=== PATIENT | male | born 1945 | race Caucasian/White ===

== ENCOUNTER 2022-03-22 13:13 | Inpatient (IN) ==
[2022-03-22] MEDS ORDERED: *HR* HYDROcodone/Acet 5/325 mg TABLET PO ONE (14:05)
[2022-03-22 15:33] LABS: Basophils % 0.3 %; Eosinophils % 0.2 %; Hematocrit 46.1 % (37.5-50.1); Hemoglobin 15.3 g/dL (12.9-16.9); Immature Granulocytes % 0.6 % (0-4); Lymphocytes % 8.1 %; Mean Corpuscular HGB Conc 33.2 g/dL (31.6-35.5); Mean Corpuscular Hemoglobin 30.2 pg (28.0-33.3); Mean Corpuscular Volume 90.9 fL (83.0-100.0); Mean Platelet Volume 10.1 fL (9.4-12.4); Monocytes # 0.9 K/mcL (0.0-1.3); Monocytes % 6.9 %; Neutrophils # 10.6 K/mcL (1.6-8.9); Platelet Count 266 K/mcL (140-400); Red Blood Count 5.07 M/mcL (4.19-5.50); Red Cell Distribution Width 13.9 % (11.5-14.5); Segmented Neutrophils % 83.9 %; White Blood Count 12.7 K/mcL (4.3-11.1)
[2022-03-22 15:40] LABS: INR 1.1; Prothrombin Time 12.8 Seconds (9.4-12.1)
[2022-03-22 15:42] LABS: Activated Partial Thrombo Time 28.7 Seconds (26.0-36.0)
[2022-03-22 16:06] LABS: Calcium 9.8 mg/dL (8.6-10.3); Potassium 4.6 mEq/L (3.5-5.1)
[2022-03-22] MEDS ORDERED: Ondansetron 4 MG/2 ML VIAL IVP PRN (17:03)
[2022-03-22] MEDS ORDERED: *HR* HYDROcodone/Acet 5/325 mg TABLET PO PRN (17:03)
[2022-03-22] MEDS ORDERED: Naloxone 0.4 MG/ML INJ IVP PRN (17:03)
[2022-03-22] MEDS ORDERED: Loratadine 10 MG TABLET PO PRN (17:12)
[2022-03-22] MEDS ORDERED: 0.9 % Sodium Chloride 1,000 ML IVC SCH (17:15)
[2022-03-22] MEDS: *HR* OxyCODONE Immed Rel 5 MG TABLET PO PRN (17:58)
[2022-03-22] MEDS: *HR* Heparin 5,000 UNIT/ML VIAL SQ SCH (17:59)
[2022-03-22] MEDS ORDERED: *HR* HYDROmorphone 2 MG/ML SYRINGE IVP ONE (19:00)
[2022-03-23 00:52] LABS: Basophils % 0.4 %; Eosinophils # 0.1 K/mcL (0.0-0.6); Eosinophils % 0.6 %; Hematocrit 43.3 % (37.5-50.1); Hemoglobin 14.2 g/dL (12.9-16.9); Immature Granulocytes % 0.5 % (0-4); Lymphocytes % 9.3 %; Mean Corpuscular HGB Conc 32.8 g/dL (31.6-35.5); Mean Corpuscular Hemoglobin 29.8 pg (28.0-33.3); Mean Corpuscular Volume 90.8 fL (83.0-100.0); Mean Platelet Volume 10.2 fL (9.4-12.4); Monocytes # 0.9 K/mcL (0.0-1.3); Monocytes % 8.3 %; Neutrophils # 8.4 K/mcL (1.6-8.9); Platelet Count 252 K/mcL (140-400); Red Blood Count 4.77 M/mcL (4.19-5.50); Red Cell Distribution Width 13.6 % (11.5-14.5); Segmented Neutrophils % 80.9 %; White Blood Count 10.4 K/mcL (4.3-11.1)
[2022-03-23 01:07] LABS: INR 1.2
[2022-03-23 01:08] LABS: BUN/Creatinine Ratio 17 (6-26); Blood Urea Nitrogen 22 mg/dL (8-23); Calcium 8.9 mg/dL (8.6-10.3); Carbon Dioxide 25 mEq/L (23-29); Chloride 103 mEq/L (98-107); Glucose 105 mg/dL (70-105); Magnesium 1.8 mg/dL (1.6-2.6); Osmolality,Calculated 284 (280-300); Phosphorous 3.3 mg/dL (2.7-4.5); Potassium 4.3 mEq/L (3.5-5.1); Sodium 135 mEq/L (136-145); eGFR For African Americans > 60 (> 60); eGFR For Non-African Americans 53 (> 60)
[2022-03-23 01:10] LABS: Activated Partial Thrombo Time 27.5 Seconds (26.0-36.0)
[2022-03-23] MEDS: *HR* Heparin 5,000 UNIT/ML VIAL SQ SCH (05:18)
[2022-03-23] MEDS: *HR* OxyCODONE Immed Rel 5 MG TABLET PO PRN ×3 (05:37→23:00)
[2022-03-23] MEDS ORDERED: atenoloL 25 MG TABLET PO SCH (09:00)
[2022-03-23] MEDS ORDERED: Aspirin 81 MG TAB.CHEW PO SCH (09:00)
[2022-03-23] MEDS ORDERED: Cholecalciferol (D-3) 1,000 UNIT (25MCG) TABLET PO SCH (09:00)
[2022-03-23] MEDS ORDERED: Acetaminophen IV 1,000 MG/100 ML BAG IVPB ONE (11:01)
[2022-03-23] MEDS ORDERED: Famotidine 20 MG/2 ML VIAL IVP ONE (11:01)
[2022-03-23] MEDS ORDERED: Celecoxib 200 MG CAPSULE PO ONE (11:01)
[2022-03-23] MEDS ORDERED: *HR* Succinylcholine 200 MG/10 ML VIAL IVP ONE (11:24)
[2022-03-23] MEDS ORDERED: Lidocaine HCL 4 ML Topical Solution (Laryng-O-Jet Kit Sterile Pak) TP ONE (11:24)
[2022-03-23] MEDS ORDERED: Ondansetron 4 MG/2 ML VIAL ONE (11:24)
[2022-03-23] MEDS ORDERED: Lidocaine -MPF 2% 2 ML VIAL ONE (11:24)
[2022-03-23] MEDS ORDERED: *HR* Rocuronium Bromide 50 MG/5 ML VIAL ONE (11:24)
[2022-03-23] MEDS ORDERED: *HR* Propofol 200 MG/20 ML VIAL IVP ONE (11:25)
[2022-03-23] MEDS ORDERED: *HR* FentaNYL (PF) 100 MCG/2 ML VIAL ONE (11:33)
[2022-03-23] MEDS ORDERED: Tranexamic Acid 1,000 MG/10 ML VIAL ONE ×2 (12:11)
[2022-03-23] MEDS ORDERED: *HR* HYDROMORPHONE 2 MG/ML VIAL ONE (13:02)
[2022-03-23] MEDS ORDERED: Sugammadex Sodium 200 MG/2 ML VIAL IV ONE (13:35)
[2022-03-23] MEDS ORDERED: Naloxone 0.4 MG/ML INJ IVP PRN (15:02)
[2022-03-23] MEDS ORDERED: Ringers Solution, Lactated 1,000 ML IVC SCH (15:02)
[2022-03-23] MEDS ORDERED: HYDROcodone BIT/Homatropine 5 MG TABLET PO PRN (15:02)
[2022-03-23] MEDS ORDERED: Loratadine 10 MG TABLET PO PRN (15:02)
[2022-03-23] MEDS ORDERED: Ondansetron 4 MG/2 ML VIAL IVP PRN (15:02)
[2022-03-23] MEDS ORDERED: *HR* HYDROcodone/Acet 5/325 mg TABLET PO PRN (15:02)
[2022-03-23] MEDS: CeFAZolin 2 GM/120 ML BAG IVPB SCH ×2 (16:54→23:00)
[2022-03-24 08:12] LABS: Basophils # 0.1 K/mcL (0.0-0.2); Basophils % 0.4 %; Eosinophils % 0.2 %; Hematocrit 42.4 % (37.5-50.1); Hemoglobin 13.9 g/dL (12.9-16.9); Immature Granulocytes % 0.7 % (0-4); Lymphocytes # 1.1 K/mcL (0.6-4.6); Lymphocytes % 8.2 %; Mean Corpuscular HGB Conc 32.8 g/dL (31.6-35.5); Mean Corpuscular Hemoglobin 30.5 pg (28.0-33.3); Mean Corpuscular Volume 93.2 fL (83.0-100.0); Mean Platelet Volume 10.4 fL (9.4-12.4); Monocytes # 0.9 K/mcL (0.0-1.3); Monocytes % 6.7 %; Neutrophils # 11.6 K/mcL (1.6-8.9); Platelet Count 230 K/mcL (140-400); Red Blood Count 4.55 M/mcL (4.19-5.50); Red Cell Distribution Width 13.4 % (11.5-14.5); Segmented Neutrophils % 83.8 %; White Blood Count 13.8 K/mcL (4.3-11.1)
[2022-03-24 08:29] LABS: Calcium 9.1 mg/dL (8.6-10.3); Phosphorous 3.3 mg/dL (2.7-4.5); Potassium 4.8 mEq/L (3.5-5.1)
[2022-03-24] MEDS: Aspirin 81 MG TAB.CHEW PO SCH (08:43)
[2022-03-24] MEDS: Cholecalciferol (D-3) 1,000 UNIT (25MCG) TABLET PO SCH (08:43)
[2022-03-24] MEDS: atenoloL 25 MG TABLET PO SCH (08:44)
[2022-03-24] MEDS: *HR* OxyCODONE Immed Rel 5 MG TABLET PO PRN ×2 (11:00→21:27)
[2022-03-24] MEDS ORDERED: *HR* Enoxaparin 30 MG/0.3 ML SYRINGE SQ SCH (14:11)
[2022-03-25] MEDS: *HR* OxyCODONE Immed Rel 5 MG TABLET PO PRN ×2 (04:30→12:10)
[2022-03-25] MEDS ORDERED: *HR* Enoxaparin 30 MG/0.3 ML SYRINGE SQ SCH (06:00)
[2022-03-25 06:29] LABS: Basophils % 0.4 %; Eosinophils # 0.2 K/mcL (0.0-0.6); Eosinophils % 1.6 %; Hematocrit 38.9 % (37.5-50.1); Hemoglobin 12.5 g/dL (12.9-16.9); Immature Granulocytes % 0.6 % (0-4); Lymphocytes # 1.4 K/mcL (0.6-4.6); Lymphocytes % 14.4 %; Mean Corpuscular HGB Conc 32.1 g/dL (31.6-35.5); Mean Corpuscular Hemoglobin 29.6 pg (28.0-33.3); Mean Platelet Volume 10.6 fL (9.4-12.4); Monocytes # 0.9 K/mcL (0.0-1.3); Monocytes % 9.7 %; Platelet Count 217 K/mcL (140-400); Red Blood Count 4.23 M/mcL (4.19-5.50); Red Cell Distribution Width 13.5 % (11.5-14.5); Segmented Neutrophils % 73.3 %; White Blood Count 9.5 K/mcL (4.3-11.1)
[2022-03-25 06:57] LABS: BUN/Creatinine Ratio 20 (6-26); Blood Urea Nitrogen 24 mg/dL (8-23); Carbon Dioxide 29 mEq/L (23-29); Chloride 102 mEq/L (98-107); Glucose 98 mg/dL (70-105); Magnesium 1.8 mg/dL (1.6-2.6); Osmolality,Calculated 288 (280-300); Potassium 3.9 mEq/L (3.5-5.1); Sodium 137 mEq/L (136-145); eGFR For African Americans > 60 (> 60); eGFR For Non-African Americans 59 (> 60)
[2022-03-25] MEDS: Aspirin 81 MG TAB.CHEW PO SCH (07:41)
[2022-03-25] MEDS: atenoloL 25 MG TABLET PO SCH (07:41)
[2022-03-25] MEDS: Cholecalciferol (D-3) 1,000 UNIT (25MCG) TABLET PO SCH (07:41)
[2022-03-25 10:44] VITALS: BP 148/67; PULSE 60; TEMP 97.6; O2SAT 92
== END 2022-03-25 12:20 | disposition home health service (06) | DRG 522 ==
LOC: EMEROOARM 13:13 → 4WAOSI 13:13 → SUATTDRO 17:19 → 4WAOSI 17:43
PROVIDERS: ADMIT Student in an Organized Health Care Education/Training Program; ATTEND Internal Medicine